=== PATIENT | male | born 1955 | race Caucasian/White ===

== ENCOUNTER → 2016-12-15 | Day surgery (SDC) | payer OTHER ==
[~2016-12-15] VITALS: Ht 180.3 cm; Wt 99.8 kg
[~2016-12-15] MED LIST: 0.9% Sodium Chloride 1,000 ML IV SCH; ALBU1.25 INHALATION; ALBU8.5H2 INHALATION; ATEN50TA PO; HYDR-3825 PO; PRE20 PO; Sodium Chloride LOK Flush 10 mL Syringe IV PRN; fentaNYL-PF 50 mCg/mL 2 mL Inj IVPUSH PRN
[2016-12-15 10:16] VITALS: BP 115/69; PULSE 60; RESP 14; O2SAT 96
[2016-12-15 11:45] VITALS: BP 114/73; PULSE 65; RESP 16; O2SAT 95
[2016-12-15 12:03] VITALS: BP 112/67; RESP 14; O2SAT 96
--- NOTE | 2016-12-15 20:40 | ENDO ---
[address] [address] ENDOSCOPY PROCEDURE PATIENT: REGINO COLLAZO : 1955 MR#: [id number] ADMIT: 12/15/2016 JOB ID: [id number] DATE: 12/15/2016 PROCEDURE: Colonoscopy. INDICATION: Patient with a history of Crohn disease For which he is currently on Humira every 14 days. The patient's ASA classification is II. Mallampati score is II. MEDICATIONS: 1. Versed 5 mg. 2. Fentanyl 100 mcg. INSTRUMENT USED: PCF-H180AL. PREPARATION QUALITY: Fair. PROCEDURE DETAILS: After informed consent was obtained, the patient was brought into the GI suite, where he was placed on oxygen via nasal cannula and monitored with continuous pulse oximeter, telemetry, and blood pressure monitoring. A time-out was performed. Then, he was placed in a left lateral decubitus position and medications were administered for sedation. Digital rectal exam was performed which was unremarkable. The colonoscope was then inserted into the rectum and advanced under direct visualization to the cecum, which was identified by the presence of the ileocecal valve and appendiceal orifice. Once the cecum was reached, the colonoscope was withdrawn back into the rectum as the mucosa and lumen were examined. In the rectum, retroflexion was performed. Following retroflexion, remaining air in the rectum was suctioned, and procedure was completed. FINDINGS: 1. In the descending colon, there was an approximately 5 mm sessile polyp that was removed with a hot snare. 2. In the cecum, there were multiple punctate erosions. 3. Multiple random biopsies were obtained throughout the entire colon and rectum. 4. Multiple attempts to intubate the terminal ileum were unsuccessful. IMPRESSION: 1. Multiple erosions in the cecum. 2. Descending polyp, otherwise normal exam. RECOMMENDATIONS: 1. Avoid NSAIDs and anticoagulants for 72 hours. 2. Follow up in GI clinic. COMPLICATIONS: None. ESTIMATED BLOOD LOSS: Less than 5 mL.
--- NOTE | 2016-12-18 16:51 | PATH ---
SURGICAL PATHOLOGY Attending Physician:Ranulfo Nolasco CASE STATUS: Signed Out PATIENT NAME: REGINO SANTOYO PID: [id number] : 1955 DATE COLLECTED:12/15/2016 21:43 SPECIMEN: 1: Colon, Biopsy 2: Colon, Biopsy 3: Colon, Biopsy 4: Colon, Polyp 5: Rectum, Biopsy CLINICAL HISTORY: 1). RIGHT COLON BIOPSY 2). TRANSVERSE COLON BIOPSY 3). LEFT COLON BIOPSY 4). DESCENDING COLON POLYP 5). RECTAL BIOPSY FINAL DIAGNOSIS: 1.RIGHT COLON, BIOPSY: - PATCHY, MILDLY ACTIVE COLITIS WITH MILD CRYPT ARCHITECTURAL DISTORTION. - NO EVIDENCE OF GRANULOMAS, DYSPLASIA AND MALIGNANCY. 2.TRANSVERSE COLON, BIOPSY: - COLONIC MUCOSA WITH MILD CRYPT ARCHITECTURAL DISTORTION. - NO EVIDENCE OF ACTIVE INFLAMMATION, GRANULOMAS, DYSPLASIA AND MALIGNANCY. 3.LEFT COLON, BIOPSY: - COLONIC MUCOSA WITH MILD CRYPT ARCHITECTURAL DISTORTION. - NO EVIDENCE OF ACTIVE INFLAMMATION, GRANULOMAS, DYSPLASIA AND MALIGNANCY. 4.DESCENDING COLON POLYP, BIOPSY: - TUBULAR ADENOMA, FAVOR SPORADIC. - ADDITIONAL DEEPER LEVELS EXAMINED. 5.RECTAL BIOPSY: - COLONIC MUCOSA WITH MINIMAL CRYPT ARCHITECTURAL DISTORTION. - NO EVIDENCE OF ACTIVE INFLAMMATION, GRANULOMAS, DYSPLASIA AND MALIGNANCY. COMMENT: As part of routine quality officer the case was also reviewed by Dr. Burton who agrees with the above interpretation. ICD10 K50.90 GROSS DESCRIPTION: The specimen is received in five formalin filled containers labeled with the patient's name. 1). The specimen is labeled "right colon" and consists of 4 portions of tissue which aggregate to 0.4 x 0.3 x 0.2 CM. The specimen is entirely submitted in cassette 1A. 2). The specimen is labeled "transverse colon" and consists of 4 portions of tissue which aggregate to 0.4 x 0.3 x 0.2 CM. The specimen is entirely submitted in cassette 2A. 3). The specimen is labeled "left colon" and consists of multiple portions of tissue which aggregate to 0.3 x 0.3 x 0.2 CM. The specimen is entirely submitted in cassette 3A. 4). The specimen is labeled "descending colon polyp" and consists of 4 portions of tissue which aggregate to 0.3 x 0.2 x 0.2 CM. The specimen is entirely submitted in cassette 4A. 5). The specimen is labeled "rectal" and consists of 3 portions of tissue which aggregate to 0.3 x 0.2 x 0.2 CM. The specimen is entirely submitted in cassette 5A. 12/15/2016KS MICRO DESCRIPTION: See diagnosis. ICD-9 CODES: CPT CODES: 1: 48235 2: 27928 3: 50501 4: 37911 5: 50084 Electronically Signed Out Beny Parker MD [facility] Pathology [facility] [address], [place] [address] Technical component performed at [facility], [address], [place], [address]
== END | disposition home or self-care (01) ==
LOC: END 07:54
PROVIDERS: ATTEND Internal Medicine Gastroenterology
DX: D12.4 Benign neoplasm of descending colon (principal); K52.9 Noninfective gastroenteritis and colitis, unspecified; K50.919 Crohn's disease, unspecified, with unspecified complications; D64.9 Anemia, unspecified; J45.909 Unspecified asthma, uncomplicated; I10 Essential (primary) hypertension; M06.9 Rheumatoid arthritis, unspecified
CPT/HCPCS: 45380; 45385; 99153; G0500; J2250; J3010; J7030